=== PATIENT | female | born 1985 | race Caucasian/White ===

== ENCOUNTER 2016-10-01 21:24 | Inpatient (IN) | payer OTHER ==
[~2016-10-01] VITALS: Ht 157.5 cm; Wt 78.9 kg
[~2016-10-01 21:24] MED LIST: ADULT TUSS100 MG/5 M PO; AMOXICILLIN500 M2 PO; BACTRIM DS TAB1 EACH PO; METFORMIN HCL500 MG PO; MOTRIN 800MG T800 MG PO; PERCOCET 325 MG1 TA2 PO; PRENATAL1 TA2 PO; ZITHROMAX250 M2 PO
[2016-10-02 00:21] LABS: ABSOLUTE BASOPHIL COUNT 0 /CUMM (0.0-0.2); ABSOLUTE EOSINOPHIL COUNT 0.1 /CUMM (0.0-0.7); ABSOLUTE GRANULOCYTE CT 5.9 /CUMM (1.4-6.5); ABSOLUTE LYMPH COUNT 3.2 /CUMM (1.2-3.4); ABSOLUTE MONOCYTE COUNT 0.5 /CUMM (0.10-0.60); BASOPHIL % 0.1 % (0.0-2.0); EOSINOPHIL % 0.6 % (0-5); GRANULOCYTE % 61.6 % (42.2-75.2); MEAN CORPUSCULAR HGB CONC 34.4 G/DL (33.0-37.0); MEAN CORPUSCULAR VOLUME 87.3 FL (81.0-99.0); MEAN PLATELET VOLUME 9.6 FL (7.4-10.4); PLATELET COUNT 195 /CUMM (130-400); RBC DISTRIBUTION WIDTH 12.4 % (11.5-14.5); RED BLOOD CELL CT 4.13 /CUMM (4.20-5.40); WHITE BLOOD CELL COUNT 9.6 /CUMM (4.8-10.8)
--- NOTE | 2016-10-02 00:45 | History & Physical ---
General Information and HPI MD Statement: I have seen and personally examined ARLETH DUFFY and documented this H&P. The patient is a 31 year old female at [37] weeks and [6] days gestation who presented with a chief complaint of [ROM]. Source of Information: patient Exam Limitations: no limitations History of Present Illness: This patient is a 31-year-old 10 para 3063 who presented on October 01 at 37 weeks and 6 days with complaint of rupture of membranes possibly for 2 days. The patient relayed history of loss of fluid 2 days ago and presented to her primary FORESTRY TECHNICIAN office where sterile speculum exam was performed and was apparently negative. She presented to the office today for persistent leakage of fluid however waiting the office the patient just left and then presented here to [facility] this evening. Her history is remarkable for 1.3 prior deliveries. She desires repeat delivery 2. Desires bilateral tubal ligation. However, records obtained from [facility] reveals there is no record of tubal ligation forms. 3.Remote h/o asthma 4. pregestational diabetes. Prepregnancy was managed by Dr. Carolina with metformin. Currently managed by Dr. Hernandez. On insulin 12mg ?humalog preprandial and 7 units Humilin at bedtime 5.h/o hep C. Dxd 2006. Was treated with interferon and ?ribavirin x 18 months. Reports hep C is undetectable. Did not have hep C titer this but did have nl LFTs when "itchy" per pt. 6.h/o tobacco use . prepregnancy 1ppd. 5-6 cig/ day during . on Wellbutrin 75mgBID. initially prescribed for smoking cessation 7.h/o depression . on wellbutrin as above 8. h/o HSV. not on valtrex, denies any active outbreak 9. alelrgy to latex, bees, peanuts Allergies/Medications Allergies: Coded Allergies: bee pollen (Severe, ANAPHYLAXIS 10/01/16) latex (Intermediate, RASH 10/01/16) peanut (Intermediate, RASH 10/01/16) Home Med list Amoxicillin 500 MG CAPSULE 1 CAP PO TID infection Azithromycin (Zithromax) 250 MG TABLET 1 DP PO AD BRONCHITIS 2 the first day followed by 1 for days 2-5 Guaifenesin (Adult Tussin Chest Congestion) 100 MG/5 ML LIQUID 1-2 TSP PO Q6H PRN COUGH Metformin Hydrochloride (Metformin HCl) 500 MG TAB 1 TAB PO BID DIABETES ( Reported) Sulfamethoxazole/Trimethoprim (Bactrim Ds Tablet) 1 EACH TABLET 1 TAB PO BID infection Compliance With Home Meds: POOR (relays does not take PNV) 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: 3 Last Menstrual Period: 4..16 Estimated Delivery Date: 10.16.15 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 EENTM: Reports: no symptoms. Cardiovascular: Reports: no symptoms. Respiratory: Reports: no symptoms. GI: Reports: no symptoms. Genitourinary: Reports: see HPI. Musculoskeletal: Reports: no symptoms. Skin: Reports: no symptoms. Neurological/Psychological: Reports: no symptoms. Hematologic/Endocrine: Reports: no symptoms. Immunologic/Allergic: Reports: no symptoms. All Other Systems: Reviewed and Negative Exam & Diagnostic Data Obstetric Exam Wgt Gained During : unknown pt refused most weight checks at PN apts Pelvimetry: n/a Dilation (cm): 0 Effacement (%): 0 Station: 0 Membranes: SROM Fluid: clear Fundal Height (cm): 37 Multiple Gestation? Yes Contractions: initially q5 min but resolved after IVF bolus Infant #1 - FHR Baseline: 130 Category: 1 Estimated Weight: 7lb Presentation: vtx Patient for Induction? No Physical Exam General Appearance Alert, Oriented X3, Cooperative, No Acute Distress Skin No Rashes HEENT Atraumatic Neck Supple Cardiovascular Regular Rate Lungs Normal Air Movement Abdomen Normal Bowel Sounds, Soft, No Tenderness, gravid Neurological Normal Gait, Normal Speech, Strength at 5/5 X4 Ext, Normal Tone, Sensation Intact, Cranial Nerves 3-12 NL Reproductive (FEMALE) Normal female genitalia, NO HSV lesions noted Pelvic (FEMALE) Appearance Normal Labs Blood Type & Rh: Bpos Antibody Screen: neg Hct/Hgb & Platelets #1: 13 38.2 227 Hct/Hgb & Platelets #2: 12.3 35.6 200 Rubella: imm VDRL #1: neg VDRL #2: neg HbsAg: neg HIV #1: neg HIV #2 neg 1 Hr PG: n/a Group B Strep: neg per pt Initial Ultrasound: n/a Anatomy Ultrasound: n/a Ultrasound for EFW: n/a Genetic Testing: neg hgb elec, neg cf Last 24 Hrs of Labs/Moe: Laboratory Tests 10/02/16 0002: Hepatitis C Antibody Cancelled 10/01/16 2355: Hemoglobin A1c Pending 10/01/16 2355: Sodium Pending, Potassium Pending, Chloride Pending, Carbon Dioxide Pending, Anion Gap Pending, BUN Pending, Creatinine Pending, BUN/Creatinine Ratio Pending , Total Bilirubin Pending, Direct Bilirubin Pending, AST Pending, ALT Pending, Alkaline Phosphatase Pending, Total Protein Pending, Albumin Pending, CBC w Diff NO MAN DIFF REQ, RBC 4.13 L, MCV 87.3, MCH 30.0, RDW 12.4, MPV 9.6, Gran % 61.6 , Lymphocytes % 32.9, Monocytes % 4.8, Eosinophils % 0.6, Basophils % 0.1, Absolute Granulocytes 5.9, Absolute Lymphocytes 3.2, Absolute Monocytes 0.5, Absolute Eosinophils 0.1, Absolute Basophils 0, PUBS MCHC 34.4, Hepatitis C Antibody Pending 10/01/16 2215: Urine Opiates Screen < 100.00, Methadone Screen < 40, Barbiturate Screen < 60, Ur Phencyclidine Scrn < 6.00, Amphetamines Screen < 100, U Benzodiazepines Scrn < 85, Urine Cocaine Screen < 50, Urine Cannabis Screen < 5.00 10/01/160: Urinalysis LIGHT H, Urine Color YEL, Urine Clarity CLEAR, Urine pH 6.5, Ur Specific [place] 1.010, Urine Protein NEG, Urine Ketones NEG, Urine Nitrite NEG, Urine Bilirubin NEG, Urine Urobilinogen 0.2, Ur Leukocyte Esterase TRACE H, Ur Microscopic SEDIMENT EXAMINED, Urine RBC 1-3, Urine WBC 3-5 H, Ur Epithelial Cells MOD H, Urine Hemoglobin TRACE-LYSED, Urine Glucose NEG Microbiology 10/01 2321 URINE ROUT: Urine Culture - COLB Assessment/Plan Assessment/Plan: 31-year-old 10 para 3 at now 38 weeks of gestation with spontaneous rupture of membranes possibly for 2 days now. She is not in active labor at this time. She has a history of 3 prior deliveries. She is a type II diabetic on insulin. Given her history we will perform repeat delivery in the a.m. unless develops maternal indication overnight such as active labor or indications such as nonreassuring status. Her record was obtained from [facility] and is limited. I contacted her primary FORESTRY TECHNICIAN Ivana Hong MD who informed me that she does have an anterior placenta but does not have an accreta. I also spoke with a resident at [facility], Dr. Thomas Ross who relayed to me that her records were located at [facility]. He reported to me that her last ultrasound on August 28 noted an anterior placenta however it was above her previous uterine scar. There were however adhesions noted. She was scheduled for a repeat delivery at [place] on October 09. I offered to transfer her to [place] where she was initially scheduled and for higher level of care but she declined. Additionally she has a history of type 2 diabetes. She hasn't eaten much today we will hold on her evening insulin dose and keep her nothing by mouth for the morning. We'll contact Dr. Hernandez in the morning for further management. Will place on a sliding scale overnight. She has a history of hepatitis C which she states has resolved. I hepatitis C antibody was ordered. As well as LFTs. She has a remote history of asthma. She is a tobacco user. She declines a patch. Will resume her Wellbutrin. Given history of possible prolonged rupture of membranes , will place on group B strep prophylaxis. She was counseled on risks, benefits, alternatives of delivery including risk of bleeding, possible need for blood transfusion or hysterectomy. She was informed the risk of infection that may require additional antibiotics or procedures. She was informed of the risk of possible injury to the fetus or surrounding organs which is higher with additional surgeries. She stated verbal understanding of all the above and desires to proceed. She also desires tubal ligation however her consent papers cannot be located at this time. I notified her primary FORESTRY TECHNICIAN to try to obtain papers for the morning. She is scheduled for a repeat delivery in the morning unless maternal status changes overnight. The case was also reviewed with Dr. Aaron, white mixing operator of OB/ MINING TEACHER at [facility]. As Ranked By This Provider Problem List: 1. 2. Previous delivery affecting 3. Diabetes 4. Tobacco abuse Core Measures/Miscellaneous Salazar Catheter Date In: 10/02/16 Venous Thromboembolism VTE Risk Factors: /, Smoking VTE Contraindications: No Contraindications VTE Prophylaxis Ordered Inpt: Early Ambulation VTE Diagnosis: Yes Beta Bebeto Is Beta Bebeto a Home Med? No Antibiotics Is Patient on Antibiotics? No If Yes: prophylaxis (pt will be started on prophyla) Attending MD Review Statement Attending Statement Attending MD Statement: examined this patient, discussed w/nursing
[2016-10-02 02:39] VITALS: BP 118/78
--- NOTE | 2016-10-02 09:14 | Operative Report ---
Operative/Inv Procedure Report Surgery Date: 10/02/16 Name of Procedure: Repeat section Pre-Operative Diagnosis: 38 weeks gestation, type 2 diabetes, spontaneous rupture of membranes, history of 3 previous deliveries Post-Operative Diagnosis: Same Estimated Blood Loss: 700 mL Surgeon/Malt House Loader: SEBLE NOGUEIRA DO, MD assist Anesthesia: block, spinal with Astramorph IV Fluids: 2100 ml (1000pit, 1100 crystalloid) Urine Output: 700ml Drains: Salazar catheter Specimens: Placenta Complications: None Condition: Good Operative Indication: This patient is a 31-year-old 10 para 3063 who presented on October 01 at 37 weeks and 6 days with complaint of rupture of membranes possibly for 2 days. The patient relayed history of loss of fluid 2 days ago and presented to her primary NET TECHNICAL ARCHITECT office where sterile speculum exam was performed and was apparently negative. She presented to the office on 09/30/2016 for persistent leakage of fluid however waiting the office the patient just left and then presented here to [facility] that evening. Her history is remarkable for 1.3 prior deliveries. She desires repeat delivery 2. Desires bilateral tubal ligation. However, records obtained from [facility] reveals there is no record of tubal ligation forms. Her NET TECHNICAL ARCHITECT was notified and we requested bilateral tubal ligation consent however none was sent to the child Center at [facility]. 3.Remote h/o asthma 4. pregestational diabetes. Prepregnancy was managed by Dr. Carolina with metformin. Currently managed by Dr. Hernandez. On insulin 12mg ?humalog preprandial and 7 units Humilin at bedtime 5.h/o hep C. Dxd 2006. Was treated with interferon and ?ribavirin x 18 months. Reports hep C is undetectable. Did not have hep C titer this but did have nl LFTs when "itchy" per pt. 6.h/o tobacco use . prepregnancy 1ppd. 5-6 cig/ day during . on Wellbutrin 75mgBID. initially prescribed for smoking cessation 7.h/o depression . on wellbutrin as above 8. h/o HSV. not on valtrex, denies any active outbreak 9. alllergy to latex, bees, peanuts The patient was counseled on the risks, benefits, alternatives of repeat delivery. She was informed of risk of bleeding, blood transfusion, hysterectomy. She is informed of the risk of infection that may require antibiotics or wound care. She was informed of risk of injury to the fetus or other organs that may require additional procedure should competition occur. She was offered the alternative of transferring to [place] as she was not in active labor where she had a planned delivery later in the month. The patient declined. She was made aware that without proper tubal ligation consent forms, sterilization would not be performed. And as noted above attempted to obtain them were unsuccessful. The patient has stated verbal understanding of all the above and desires to proceed. Operative/Procedure Note Note: The patient was taken operating room where anesthesia was obtained. She is placed in the dorsal supine position with a left lateral tilt. She was then prepared and draped in usual sterile fashion. A Pfannenstiel skin skin incision was made over her pre-existing scar. Incision was then carried down to the fascia with the scalpel. She had moderate scar tissue involving her subcutaneous tissues. The fascia was then incised with the scalpel. Fascial incision was then extended bilaterally with the Bovie. Superior aspect the fascial incision was tented up with [place] clamps and rectus muscles were noted to be densely adherent to the underside of her fascia. There were with the scalpel. A small amount of omentum was also adhered to her fascia this was carefully taken down with the Bovie. A small window into the peritoneum was identified and not incision was then extended superiorly and inferiorly with the scalpel. The inferior aspect the fascial incision was tented up with [place] clamps and rectus muscles dissected off with sharp dissection. Small to moderate scar tissue was encountered involving the peritoneum to the inferior rectus muscles. It wasmost notable on the right aspect of her uterus and peritoneum. Bladder blade was inserted and the vesicouterine peritoneum was identified and entered sharply with Metzenbaum scissors. Incision was then extended bilaterally with sharp dissection. Bladder flap was created and the bladder blade was then reinserted. Lower uterine segment was then incised in transverse fashion with the scalpel. Membranes were noted and 4 bag ruptured. Clear fluid was noted. The head was delivered atraumatically and without difficulty. Nuchal cord was reduced. The remainder of the infant was delivered atraumatically and without difficulty. Good cry was noted. Infant was further nose and bulb suctioned. The cord was clamped and cut and the infant was handed to the waiting pediatric team. Placenta was then delivered with gentle traction on the cord. Uterus was then exteriorized and cleared of all clots and debris. Uterine incision was then reapproximated with 0 Vicryl in a running locking fashion. A second imbricating suture of 0 Vicryl was then placed. Multiple additional [id number] sutures of 0 Vicryl placed in order to obtain excellent hemostasis. The posterior aspect of the uterus was irrigated. Should normal-appearing bilateral ovaries and fallopian tubes. Uterine incision was reevaluated and noted to be hemostatic. The uterus was then replaced back into the abdomen the gutters were cleared of all clots and debris. Uterine incision was reevaluated and noted to be hemostatic. Peritoneum was then reapproximated 3-0 Polysorb. Rectus muscle was reapproximated inferiorly with one figure of 8 suture of 3-0 Vicryl fascia was reapproximated 0 Vicryl in a running fashion. Subcutaneous taste tissues were reapproximated through Polysorb. Skin was closed with mayte. All sponge, lap counts, needle counts were correct 2 the patient was taken to the recovery area in stable condition. Findings: 6'13" male infant with apgars of 8,9,9 @ 0813 on 10/02/2016. nl tubes, nl ovaries nuchal cord x 1 Discharge Disposition: CBC
--- NOTE | 2016-10-02 17:59 | Cons- Endocrinology ---
General Information and HPI Consulting Request Date of Consult: 10/02/16 Requested By: OB team Reason for Consult: Type 2 DM Source of Information: patient, old records Exam Limitations: no limitations History of Present Illness: This 31-year-old woman delivered her baby this morning by section. The patient has a long-standing history of type 2 diabetes mellitus. The patient was on insulin at home prior to delivery in order to control her blood sugars during . She was taking NPH insulin twice a day as well as Humalog before meals. Her hemoglobin A1c as an outpatient was in a good range. The patient is now postop section. She is this started to eat this evening. Her blood sugar was only 66. Allergies/Medications Allergies: Coded Allergies: bee pollen (Severe, ANAPHYLAXIS 10/01/16) latex (Intermediate, RASH 10/01/16) peanut (Intermediate, RASH 10/01/16) Home Med List: Ibuprofen 800 MG TABLET 800 MG PO Q6P PRN UTERINE CRAMPING Oxycodone HCl/Acetaminophen (Percocet 5-325 MG Tablet) 5 MG-325 MG TABLET 2 TAB PO Q4P PRN PAIN SCALE 7-10 (SEVERE) Past History Medical History Neurological: NONE EENT: NONE Cardiovascular: NONE Respiratory: asthma, remote h/o asmthma Gastrointestinal: NONE Hepatic: hepatitis C Renal: NONE Musculoskeletal: NONE Psychiatric: depression Endocrine: diabetes Blood Disorders: NONE Cancer(s): NONE 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 Surgical History Surgical History: , ganglion cyst Psychosocial History Smoking Status: Current Everyday Smoker Exam & Diagnostic Data Last 24 Hrs of Vital Signs/I&O Vital Signs Date Time Temp Pulse Resp B/P Pulse O2 O2 Flow FiO2 Ox Delivery Rate 10/02 238 118/78 Intake & Output 10/02 0000 Intake Total Output Total Balance Patient 174 lb Weight Vital Signs Date Time Temp Pulse Resp B/P Pulse O2 O2 Flow FiO2 Ox Delivery Rate 10/02 0239 118/78 Intake & Output 10/02 0000 Intake Total Output Total Balance Patient 174 lb Weight Physical Exam General Appearance: no apparent distress, alert, awake Head: normal appearance Eyes: Bilateral: normal appearance. Neck: normal inspection Respiratory: normal breath sounds Cardiovascular: regular rate/rhythm Gastrointestinal: normal bowel sounds Extremities: normal inspection Labs/Moe Results: Laboratory Tests 10/02 10/01 10/01 0002 2355 2355 Chemistry Sodium (137 - 145 mmol/L) 137 Potassium (3.5 - 5.1 mmol/L) 3.6 Chloride (98 - 107 mmol/L) 100 Carbon Dioxide (22 - 30 mmol/L) 23 Anion Gap (5 - 16) 14 BUN (7 - 17 mg/dL) 6 L Creatinine (0.5 - 1.0 mg/dL) 0.5 Estimated GFR (>60 ml/min) > 60 BUN/Creatinine Ratio (7 - 25 %) 12.0 Hemoglobin A1c Pending Total Bilirubin (0.2 - 1.3 mg/dL) 0.4 Direct Bilirubin (< 0.4 mg/dL) 0.3 AST (14 - 36 U/L) 21 ALT (9 - 52 U/L) 41 Alkaline Phosphatase (<127 U/L) 125 Total Protein (6.3 - 8.2 g/dL) 6.2 L Albumin (3.5 - 5.0 g/dL) 3.3 L Hematology CBC w Diff NO MAN DIFF REQ WBC (4.8 - 10.8 /CUMM) 9.6 RBC (4.20 - 5.40 /CUMM) 4.13 L Hgb (12.0 - 16.0 G/DL) 12.4 Hct (37 - 47 %) 36.0 L MCV (81.0 - 99.0 FL) 87.3 MCH (27.0 - 31.0 PG) 30.0 RDW (11.5 - 14.5 %) 12.4 Plt Count (130 - 400 /CUMM) 195 MPV (7.4 - 10.4 FL) 9.6 Gran % (42.2 - 75.2 %) 61.6 Lymphocytes % (20.5 - 51.1 %) 32.9 Monocytes % (1.7 - 9.3 %) 4.8 Eosinophils % (0 - 5 %) 0.6 Basophils % (0.0 - 2.0 %) 0.1 Absolute Granulocytes (1.4 - 6.5 /CUMM) 5.9 Absolute Lymphocytes (1.2 - 3.4 /CUMM) 3.2 Absolute Monocytes (0.10 - 0.60 /CUMM) 0.5 Absolute Eosinophils (0.0 - 0.7 /CUMM) 0.1 Absolute Basophils (0.0 - 0.2 /CUMM) 0 PUBS MCHC (33.0 - 37.0 G/DL) 34.4 Serology Hepatitis C Antibody (NONREACTIVE) Cancelled REACTIVE H 10/01 10/01 2215 2140 Toxicology Urine Opiates Screen (>2000 NG/ML) < 100.00 Methadone Screen (>300 NG/ML) < 40 Barbiturate Screen (>200 NG/ML) < 60 Ur Phencyclidine Scrn (>25 NG/ML) < 6.00 Amphetamines Screen (>1000 NG/ML) < 100 U Benzodiazepines Scrn (>200 NG/ML) < 85 Urine Cocaine Screen (>300 NG/ML) < 50 Urine Cannabis Screen (>50 NG/ML) < 5.00 Urines Urinalysis LIGHT H Urine Color (YEL,AMB,STR) YEL Urine Clarity (CLEAR) CLEAR Urine pH (5.0 - 8.0) 6.5 Ur Specific [place] (1.001 - 1.035) 1.010 Urine Protein (NEG,<30 MG/DL) NEG Urine Ketones (NEG) NEG Urine Nitrite (NEG) NEG Urine Bilirubin (NEG) NEG Urine Urobilinogen (0.1 - 1.0 EU/dl) 0.2 Ur Leukocyte Esterase (NEG) TRACE H Ur Microscopic SEDIMENT EXAMINED Urine RBC (0 - 5 /HPF) 1-3 Urine WBC (0 - 2 /HPF) 3-5 H Ur Epithelial Cells (NONE,FEW) MOD H Urine Hemoglobin (NEG) TRACE-LYSED Urine Glucose (N MG/DL) NEG Assessment/Plan Assessment/Plan Suggest that the patient's diabetes at this time can be managed on diet alone. We should monitor her blood sugars 4 times a day before meals and at bedtime. Her sugar is elevated above 150 we can restart her metformin. Consult Acknowledgment - Thank you for your consult request. Consult Acknowledgment - Thank you for your consult request.
[2016-10-03 06:47] LABS: ABSOLUTE BASOPHIL COUNT 0 /CUMM (0.0-0.2); ABSOLUTE EOSINOPHIL COUNT 0 /CUMM (0.0-0.7); ABSOLUTE LYMPH COUNT 1.4 /CUMM (1.2-3.4); BASOPHIL % 0.2 % (0.0-2.0); MEAN PLATELET VOLUME 9.8 FL (7.4-10.4); RBC DISTRIBUTION WIDTH 12.8 % (11.5-14.5)
[2016-10-03 07:01] LABS: ABSOLUTE GRANULOCYTE CT 5.9 /CUMM (1.4-6.5); ABSOLUTE MONOCYTE COUNT 0.5 /CUMM (0.10-0.60); EOSINOPHIL % 0.5 % (0-5); GRANULOCYTE % 75.2 % (42.2-75.2); MEAN CORPUSCULAR HGB 30.5 PG (27.0-31.0); MEAN CORPUSCULAR HGB CONC 34.4 G/DL (33.0-37.0); MEAN CORPUSCULAR VOLUME 88.5 FL (81.0-99.0); PLATELET COUNT 160 /CUMM (130-400); WHITE BLOOD CELL COUNT 7.9 /CUMM (4.8-10.8)
[2016-10-03 07:07] LABS: HEMATOCRIT 30.1 % (37-47)
--- NOTE | 2016-10-03 09:14 | PN- Post Delivery/GYN ---
Subjective Subjective: POD#1 pt is doing well, no complaints. tolerate diet, ng in place, clear urine. flatus(+). FS AM 80, Review of Systems Constitutional: Reports: no symptoms. EENTM: Reports: no symptoms. Cardiovascular: Reports: no symptoms. Respiratory: Reports: no symptoms. Gastrointestinal: Reports: no symptoms. Genitourinary: Reports: see HPI. Musculoskeletal: Reports: no symptoms. Skin: Reports: no symptoms. Neurological/Psychological: Reports: no symptoms. Hematologic/Endocrine: Reports: no symptoms. Immunologic/Allergic: Reports: no symptoms. All Other Systems: Reviewed and Negative Objective Last 24 Hrs of Vital Signs/I&O CHARTED. VSS Physical Exam: VSS General: NAD CV RRR Lungs CTA B/L Abdomen: soft, mild tender at incison site. uterus firm, fundus below umbilicus, incision staple in place, D/C/I, lochia mild Ext: DCT (-) Current Medications: Current Medications Sig/Jarocho Start time Last Medication Dose Route Stop Time Status Admin Acetaminophen 1,000 MG Q6P PRN 10/02 1045 AC 10/02 N/A 1 UNIT IV 2030 Bisacodyl 10 MG DAILY NEEDED PRN 10/02 0915 AC SC Bupropion HCl 75 MG BID 10/02 2200 AC 10/03 PO 0803 Bupropion HCl 75 MG BID 10/01 2338 DC PO Cefazolin Sodium 2 GM ONCE ONE 10/02 0945 DC 10/02 N/A 1 UNIT IV 10/02 1014 0744 Diphenhydramine HCl 25 MG Q6P PRN 10/02 1015 AC IV Docusate Sodium 100 MG AT BEDTIME PRN 10/02 0915 AC PO Ibuprofen 800 MG Q6P PRN 10/02 0915 AC PO Ketorolac 30 MG Q6P PRN 10/02 1045 AC Tromethamine IM 10/07 1045 Ketorolac 30 MG Q6P PRN 10/02 1045 AC 10/03 Tromethamine IV 10/07 1044 0356 Ketorolac 30 MG Q6P PRN 10/02 1015 DC Tromethamine IV 10/07 1014 Lactated Ringer's 1,000 ML Q8H 10/01 2330 DC 10/02 IV 0640 Methylergonovine 0.2 MG .[STAT] 10/02 0815 DC 10/02 Maleate IM 10/02 0916 0820 Metoclopramide HCl 10 MG Q6P PRN 10/02 1015 AC IV Naloxone HCl 0.2 MG DAILY NEEDED PRN 10/02 1015 AC IV Oxycodone/ 1 TAB Q4P PRN 10/02 0915 AC 10/03 Acetaminophen PO 0806 Oxycodone/ 2 TAB Q4P PRN 10/02 0915 AC Acetaminophen PO Oxytocin 10 UNITS ONCE ONE 10/02 0945 DC 10/02 IM 10/02 0946 0814 Oxytocin 20 UNITS Q8H 10/02 09 DC Lactated Ringer's 1,000 ML IV 10/02 1714 Penicillin G 2.5 MU Q4H 10/02 0500 DC 10/02 Potassium IV 0615 Dextrose/Water 100 ML Last 24 Hrs of Labs/Moe: Laboratory Tests 10/03/1615: CBC w Diff NO MAN DIFF REQ, RBC 3.40 L, MCV 88.5, MCH 30.5, RDW 12.8, MPV 9.8, Gran % 75.2, Lymphocytes % 18.2 L, Monocytes % 5.9, Eosinophils % 0.5, Basophils % 0.2, Absolute Granulocytes 5.9, Absolute Lymphocytes 1.4, Absolute Monocytes 0.5, Absolute Eosinophils 0, Absolute Basophils 0, PUBS MCHC 34.4 Assessment/Plan Assessment/Plan 31yo, s/p RLTCS, POD #1 1. encourage ambulation 2. pain management as needed. 3. pt has type II DM, endocrinology consult appreciated, will check FS premeal and at bedtime, management as per recommendation. 4.RT PP care Problem List: 1. 2. Diabetes Attending MD Review Statement Attending Statement Attending MD Statement: examined this patient
--- NOTE | 2016-10-03 10:11 | PN- Diabetes ---
Assessment/Plan Assessment: The patient states that she feels well. She is drinking a lot of fluids but not eating a lot of solid food at this time following her . Review of her blood sugars reveals that the higher sugars she had was 130. She is on fingerstick blood sugars before meals and at bedtime. Plan: Suggest continue the patient on diet alone. She does not need any medication for her type 2 diabetes at this time. When she goes home she can resume her metformin. Subjective Subjective: Feels okay Review of Systems Constitutional: Denies: chills, fever. Cardiovascular: Denies: chest pain. Respiratory: Denies: cough, short of breath. Gastrointestinal: Reports: no symptoms (decreased appetite). Skin: Reports: no symptoms. Objective Last 24 Hrs of Vital Signs/I&O 110/70 Physical Exam General Appearance: alert, awake, comfortable Head: normal appearance Neck: normal inspection Respiratory: normal breath sounds Cardiovascular: regular rate/rhythm Extremities: normal inspection Current Medications: Current Medications Sig/Jarocho Start time Last Medication Dose Route Stop Time Status Admin Acetaminophen 1,000 MG Q6P PRN 10/02 1045 AC 10/02 N/A 1 UNIT IV 2030 Bisacodyl 10 MG DAILY NEEDED PRN 10/02 0915 AC NC Bupropion HCl 75 MG BID 10/02 2200 AC 10/03 PO 0803 Cefazolin Sodium 2 GM ONCE ONE 10/02 0945 DC 10/02 N/A 1 UNIT IV 10/02 1014 0744 Diphenhydramine HCl 25 MG Q6P PRN 10/02 1015 AC IV Docusate Sodium 100 MG AT BEDTIME PRN 10/02 0915 AC PO Ibuprofen 800 MG Q6P PRN 10/02 0915 AC PO Ketorolac 30 MG Q6P PRN 10/02 1045 AC Tromethamine IM 10/07 1045 Ketorolac 30 MG Q6P PRN 10/02 1045 AC 10/03 Tromethamine IV 10/07 1044 0356 Ketorolac 30 MG Q6P PRN 10/02 1015 DC Tromethamine IV 10/07 1014 Metoclopramide HCl 10 MG Q6P PRN 10/02 1015 AC IV Naloxone HCl 0.2 MG DAILY NEEDED PRN 10/02 1015 AC IV Oxycodone/ 1 TAB Q4P PRN 10/02 914 AC 10/03 Acetaminophen PO 0806 Oxycodone/ 2 TAB Q4P PRN 10/02 09 AC Acetaminophen PO Oxytocin 20 UNITS Q8H 10/02 914 DC Lactated Ringer's 1,000 ML IV 10/02 1714 Findings Pertinent Lab/Moe Results: Laboratory Tests 10/03 614 Hematology CBC w Diff NO MAN DIFF REQ WBC (4.8 - 10.8 /CUMM) 7.9 RBC (4.20 - 5.40 /CUMM) 3.40 L Hgb (12.0 - 16.0 G/DL) 10.4 L Hct (37 - 47 %) 30.1 L MCV (81.0 - 99.0 FL) 88.5 MCH (27.0 - 31.0 PG) 30.5 RDW (11.5 - 14.5 %) 12.8 Plt Count (130 - 400 /CUMM) 160 MPV (7.4 - 10.4 FL) 9.8 Gran % (42.2 - 75.2 %) 75.2 Lymphocytes % (20.5 - 51.1 %) 18.2 L Monocytes % (1.7 - 9.3 %) 5.9 Eosinophils % (0 - 5 %) 0.5 Basophils % (0.0 - 2.0 %) 0.2 Absolute Granulocytes (1.4 - 6.5 /CUMM) 5.9 Absolute Lymphocytes (1.2 - 3.4 /CUMM) 1.4 Absolute Monocytes (0.10 - 0.60 /CUMM) 0.5 Absolute Eosinophils (0.0 - 0.7 /CUMM) 0 Absolute Basophils (0.0 - 0.2 /CUMM) 0 PUBS MCHC (33.0 - 37.0 G/DL) 34.4
--- NOTE | 2016-10-04 08:21 | PN- OBGYN ---
Surgical Brief Attending Note Brief Attending Note: POD#2 pt is ambulating, no complaints. tolerat diet, void without difficulties. flatus (+) PE: VSS Cv RRR lungs CTA B/L Abdomen: soft, mild tender at incision site, uterus firm, fundus below umbilicus. incision staple in place. D/C/I, lochia mild Ext: ECT (-) A/P: 31yo s/p RLTCS, POD#2 1. encourage ambulation 2. pain management as needed 3. RT PP care
--- NOTE | 2016-10-04 17:54 | PN- Diabetes ---
Assessment/Plan Assessment: The patient states that she feels well. The patient is eating better today. Review of her blood sugars reveals that her fasting blood sugar is 115. She is on fingerstick blood sugars before meals and at bedtime. Plan: Patient can continue off medication for diabetes and on diet alone. When she goes home she can begin metformin 500 mg twice a day which is considered reasonably safe for breast feeding. Subjective Subjective: feels OK. Review of Systems Constitutional: Denies: chills, fever. Cardiovascular: Denies: chest pain. Respiratory: Denies: short of breath. Skin: Reports: no symptoms. Objective Last 24 Hrs of Vital Signs/I&O 120/70 Physical Exam General Appearance: alert, awake, comfortable Head: normal appearance Neck: normal inspection Respiratory: no respiratory distress Cardiovascular: regular rate/rhythm Abdomen: normal bowel sounds Extremities: normal inspection Current Medications: Current Medications Sig/Jarocho Start time Last Medication Dose Route Stop Time Status Admin Acetaminophen 1,000 MG Q6P PRN 10/02 1045 AC 10/02 N/A 1 UNIT IV 2030 Bisacodyl 10 MG DAILY NEEDED PRN 10/02 0915 AC NC Bupropion HCl 75 MG BID 10/02 2200 DC 10/03 PO 0803 Diphenhydramine HCl 25 MG Q6P PRN 10/02 1015 AC IV Docusate Sodium 100 MG .STK-MED ONE 10/04 0131 DC PO 10/04 0132 Docusate Sodium 100 MG AT BEDTIME PRN 10/02 0915 AC 10/04 PO 0135 Ibuprofen 800 MG .STK-MED ONE 10/04 0259 DC PO 10/04 0300 Ibuprofen 800 MG .STK-MED ONE 10/03 1844 DC PO 10/03 1845 Ibuprofen 800 MG Q6P PRN 10/02 0915 AC 10/04 PO 1110 Ketorolac 30 MG Q6P PRN 10/02 1045 AC Tromethamine IM 10/07 1045 Ketorolac 30 MG Q6P PRN 10/02 1045 AC 10/03 Tromethamine IV 10/07 1044 0356 Metoclopramide HCl 10 MG Q6P PRN 10/02 1015 AC IV Naloxone HCl 0.2 MG DAILY NEEDED PRN 10/02 1015 AC IV Oxycodone/ 1 TAB Q4P PRN 10/02 0915 AC 10/04 Acetaminophen PO 1110 Oxycodone/ 2 TAB Q4P PRN 10/02 0915 AC Acetaminophen PO Simethicone 80 MG Q6P PRN 10/04 0145 AC 10/04 PO 0135
[2016-10-05] MEDS ORDERED: IBUPROFEN800 M1 PO (09:20)
[2016-10-05] MEDS ORDERED: PERCOCET 5-3251 EACH PO (09:20)
--- NOTE | 2016-10-05 09:26 | PN- Post Delivery/GYN ---
Subjective Subjective: feeling well Review of Systems Constitutional: Reports: no symptoms. Denies: chills, fever. EENTM: Denies: blurred vision, double vision, visual changes. Cardiovascular: Denies: chest pain, edema. Respiratory: Denies: short of breath. Gastrointestinal: Denies: nausea, vomiting. Neurological/Psychological: Denies: anxiety, depressed. Objective Last 24 Hrs of Vital Signs/I&O vss Physical Exam General Appearance Alert, Oriented X3, Cooperative, Mild Distress Skin No Rashes, No Breakdown, No Significant Lesion HEENT Atraumatic Neck Supple Cardiovascular Regular Rate Lungs Clear to Auscultation Abdomen Soft, No Tenderness, fundus firm, incision clean and dry Neurological Normal Gait, Normal Speech, Strength at 5/5 X4 Ext, Normal Tone Extremities No Edema Pelvic (FEMALE) lochia serosanganous Current Medications: Current Medications Sig/Jarocho Start time Last Medication Dose Route Stop Time Status Admin Acetaminophen 1,000 MG Q6P PRN 10/02 1045 AC 10/02 N/A 1 UNIT IV 2030 Bisacodyl 10 MG DAILY NEEDED PRN 10/02 0915 AC UT Diphenhydramine HCl 25 MG Q6P PRN 10/02 1015 AC IV Docusate Sodium 100 MG AT BEDTIME PRN 10/02 0915 AC 10/04 PO 0135 Ibuprofen 800 MG .STK-MED ONE 10/04 1910 DC PO 10/04 1911 Ibuprofen 800 MG .STK-MED ONE 10/04 1027 DC PO 10/04 1028 Ibuprofen 800 MG Q6P PRN 10/02 0915 AC 10/05 PO 0426 Ketorolac 30 MG Q6P PRN 10/02 1045 AC Tromethamine IM 10/07 1045 Ketorolac 30 MG Q6P PRN 10/02 1045 AC 10/03 Tromethamine IV 10/07 1044 0356 Metoclopramide HCl 10 MG Q6P PRN 10/02 1015 AC IV Naloxone HCl 0.2 MG DAILY NEEDED PRN 10/02 1015 AC IV Oxycodone/ 1 TAB Q4P PRN 10/02 0915 AC 10/05 Acetaminophen PO 0425 Oxycodone/ 2 TAB Q4P PRN 10/02 0915 AC 10/04 Acetaminophen PO 2255 Simethicone 80 MG Q6P PRN 10/04 0145 AC 10/04 PO 0135 Assessment/Plan Assessment/Plan pod #3 vss afebrile plan d/c home f/u 48 hours Problem List: 1. Previous delivery affecting Attending MD Review Statement Attending Statement Attending MD Statement: examined this patient, discussed with family, discussed with nursing
--- NOTE | 2016-10-09 18:48 | Discharge Summary ---
Visit Information Visit Dates Admission Date: 10/01/16 Discharge Date: 10/05/16 Hospital Course Course Attending Physician: SEBLE NOGUEIRA DO Primary Care Physician: JACK NASH,[facility] Course: This patient is a 31-year-old 10 para [id number] who presented on October 01 at 37 weeks and 6 days with complaint of rupture of membranes possibly for 2 days. The patient relayed history of loss of fluid 2 days ago and presented to her primary [employer] office where sterile speculum exam was performed and was apparently negative. She presented to the office today for persistent leakage of fluid however waiting the office the patient just left and then presented here [facility] tHer history WAS remarkable for 1.3 prior deliveries. She desired repeat delivery with BTL. 2. Desires bilateral tubal ligation. However, records obtained from [facility] reveals there is no record of tubal ligation forms. 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 pregestational diabetes. Prepregnancy was managed by Dr. Carolina with metformin. Currently managed by Dr. Hernandez. On insulin 12mg ?humalog preprandial and 7 units Humilin at bedtime 5.h/o hep C. Dxd 2006. Was treated with interferon and ?ribavirin x 18 months. Reports hep C is undetectable. Did not have hep C titer this but did have nl LFTs when "itchy" per pt. 6.h/o tobacco use . prepregnancy 1ppd. 5-6 cig/ day during . on Wellbutrin 75mgBID. initially prescribed for smoking cessation 7.h/o depression . on wellbutrin as above 8. h/o HSV. not on valtrex, denies any active outbreak 9. alelrgy to latex, bees, peanuts The patient did not appear to be in active labor, she was admitted overnight and delivery was performed the following am. Procedure was uncomplicated. Postop course was uncomplicated. She was discharged to home on postoperative day number 3 in good condition. she was ambulating, voiding, tolerating pain and po. PP depression precautions were advised. she was evaluated by Dr. Hernandez who advised her on her insulin. Complications: none Allergies: Coded Allergies: bee pollen (Severe, ANAPHYLAXIS 10/01/16) latex (Intermediate, RASH 10/01/16) peanut (Intermediate, RASH 10/01/16) Significant Procedures: Repeat LTCS Disposition Summary Disposition Principal Diagnosis: Term , delivered Additional Diagnosis: Spontaneous rupture of membranes, Type 2 diabetes Discharge Disposition: home or self care Discharge Instructions General Discharge Information Code Status: Full Code Patient's Diet: regular Patient's Activity: pelvic rest, no heavy lifting x 2 weeks Follow-Up Instructions/Appts: RTO in 2 and 6 weeks, if heavy bleeding, severe pain, or fever Medications at Discharge Discharge Medications: Stop taking the following medications: Metformin Hydrochloride (Metformin HCl) 500 MG TAB ORAL TWICE DAILY Amoxicillin (Amoxicillin) 500 MG CAPSULE ORAL THREE TIMES DAILY Qty = 30 Sulfamethoxazole/Trimethoprim (Bactrim Ds Tablet) 1 EACH TABLET ORAL TWICE DAILY Qty = 20 Azithromycin (Zithromax) 250 MG TABLET ORAL As Directed Qty = 6 Guaifenesin (Adult Tussin Chest Congestion) 100 MG/5 ML LIQUID ORAL Q6H as needed for COUGH Qty = 6 Start taking the following new medications: Ibuprofen (Ibuprofen) 800 MG TABLET 800 Milligram ORAL EVERY SIX HOURS NEEDED as needed for UTERINE CRAMPING Qty = 90 No Refills Comments: Last Taken: 10/05/16 Time: 1000 AM Oxycodone HCl/Acetaminophen (Percocet 5-325 MG Tablet) 5 MG-325 MG TABLET 2 Tablet ORAL EVERY 4 HOURS NEEDED as needed for PAIN SCALE 7-10 (SEVERE) Qty = 30 No Refills Comments: Last Taken: 10/05/16 Time: 4:25 AM Copies To: DAYAMI CAROLINA MD
== END 2016-10-05 12:04 | DRG 540 ==
LOC: CBCO 21:24 → GNO 23:08
PROVIDERS: Obstetrics & Gynecology; ADMIT Obstetrics & Gynecology
PROC: 10D00Z1 Extraction of Products of Conception, Low, Open Approach (ICD-10-PCS; principal; 2016-10-02)
DX: O34.211 Maternal care for low transverse scar from previous cesarean delivery (principal); N85.8 Other specified noninflammatory disorders of uterus; Z3A.38 38 weeks gestation of pregnancy; Z37.0 Single live birth; O24.12 Pre-existing type 2 diabetes mellitus, in childbirth; E11.9 Type 2 diabetes mellitus without complications; O99.334 Smoking (tobacco) complicating childbirth; Z79.84 Long term (current) use of oral hypoglycemic drugs
CPT/HCPCS: GNOP; GNOS; 80307; 81001; 82436; 84112; 86803; 87086; 88307; G0463; J0131; J0690; J1885; J7120